=== PATIENT | female | born 1970 | race Two or more races ===

== ENCOUNTER 2019-11-24 07:20 | Emergency (ER) | payer OTHER ==
[2019-11-24 07:33] VITALS: PULSE 78; TEMP 99; BMI 27.3
[2019-11-24] MEDS ORDERED: ACETAMINOPHEN 500 MG TABLET (FP) PO ONE (07:53)
[2019-11-24 08:00] VITALS: BP 127/68
[2019-11-24] MEDS ORDERED: ACETAMINOPHEN 325 MG TABLET (FP) PO ONE ×2 (08:10→08:18)
[2019-11-24] MEDS ORDERED: ACETAMINOPHEN 325 MG TABLET (FP) ONE (08:18)
[2019-11-24 08:33] LABS: HEMATOCRIT 32.9 % (32.4-45.2); HEMOGLOBIN 10.2 GM/dL (10.7-15.3); MCHC 31.1 g/dl (32.0-36.0); MEAN CELL VOLUME 73.9 fl (80-96); MEAN PLT VOLUME 8.7 fl (7.5-11.1); PLATELET COUNT 297 K/MM3 (134-434); RBC 4.45 M/mm3 (3.60-5.2); RDW 15.3 % (11.6-15.6); WHITE BLOOD COUNT 6.2 K/mm3 (4.0-10.0)
--- NOTE | 2019-11-24 08:36 | PDOC ---
History of Present Illness - General Chief Complaint: Weakness Stated Complaint: DIZZINESS Time Seen by Provider: 11/24/19 07:37 - History of Present Illness Initial Comments: 49 yo female with PMH of DM and fibroids presents with weakness and lightheadedness. The weakness/lightheadedness began 2 hours ago once she woke up. She also endorses lower abdominal pain, dysuria, and sob. She denies fevers, chills, n/v/d, hematuria, bloody stools, chest pain. She is sexually active with her only. Pt is serbian speaking and insists translation by her daughter. Past History - Medical History Allergies/Adverse Reactions: Allergies Allergy/AdvReac Type Severity Reaction Status Date / Time diclofenac Allergy Verified 11/24/19 07:26 Home Medications: Ambulatory Orders Multivitamins [Tab-A-Vit -] 1 tab PO DAILY 08/04/14 Docusate Sodium [Colace -] 100 mg PO DAILY PRN #30 capsule 08/05/14 Ferrous Sulfate [Feosol] 325 mg PO TID #90 tablet 08/05/14 metFORMIN HCL [Metformin HCl] 500 mg PO BID 05/25/18 Nitrofurantoin 100 gm MC BID 10 Days #20 powder 11/24/19 Anemia: Yes COPD: No Diabetes: Yes (niddm) Hypercholesterolemia: Yes - Surgical History Abdominal Surgery: Yes (FIBROIDS) - Immunization History Td Vaccination: Yes Immunization Up to Date: Yes - Psycho-Social/Smoking History Smoking Status: No Smoking History: Never smoked Years of Tobacco Use: 0 Have you smoked in the past 12 months: No Number of Cigarettes Smoked Daily: 0 If you are a former smoker, when did you quit?: 2010 Cigars Per Day: 0 'Breaking Loose' booklet given: 01/20/16 - Substance Abuse Hx (Audit-C & DAST Scrn) How often the patient has a drink containing alcohol: Never Score: In Men: 4 or > Positive; In Women: 3 or > Positive: 0 Screen Result (Pos requires Nsg. Audit-10AR): Negative In the last yr the pt used illegal drug/Rx for NonMed reason: No Score: Yes response is considered Positive: 0 Screen Result (Positive result requires Nsg. DAST-10): Negative Review of Systems - Review of Systems Constitutional: No: Chills, Fever HEENTM: No: Recent change in vision, Double Vision Respiratory: Yes: Shortness of Breath. No: Cough Cardiac (ROS): Yes: Lightheadedness, Palpitations. No: Chest Pain ABD/GI: No: Blood Streaked Bowels, Diarrhea, Nausea, Vomiting : Yes: Burning, Dysuria, Pain. No: Flank Pain, Urgency Musculoskeletal: No: Back Pain, Joint Pain Integumentary: No: Dryness, Erythema, Flushing, Lesions Neurological: Yes: Dizziness. No: Headache, Ataxia Psychiatric: No: Anxiety, Depression, Mood Swings Endocrine: No: Intolerance to Cold, Intolerance to Heat *Physical Exam - Vital Signs Last Vital Signs Temp Pulse Resp BP Pulse Ox 99.0 F 78 18 127/68 99 11/24/19 07:26 11/24/19 07:58 11/24/19 07:58 11/24/19 07:58 11/24/19 07:58 - Physical Exam General Appearance: Yes: Appropriately Dressed. No: Apparent Distress HEENT: positive: EOMI, Normal Voice Neck: negative: Tender, Rigid Respiratory/Chest: positive: Lungs Clear, Normal Breath Sounds. negative: Respiratory Distress Cardiovascular: positive: Regular Rhythm, Regular Rate. negative: S1, S2, Edema Female Pelvic Exam: positive: cervical os closed, normal size ovaries, other (lower left adnexal tenderness). negative: discharge, adnexal tenderness Gastrointestinal/Abdominal: positive: Tender (LLQ tenderness), Flat, Soft Musculoskeletal: positive: Normal Inspection. negative: CVA Tenderness Extremity: positive: Normal Capillary Refill, Normal Inspection, Normal Range of Motion Integumentary: positive: Normal Color, Dry, Warm Neurologic: positive: Fully Oriented, Alert, Normal Mood/Affect ED Treatment Course - LABORATORY CBC & Chemistry Diagram: 11/24/19 08:22 11/24/19 08:22 Medical Decision Making - Medical Decision Making 49 yo female presents with dysuria, weakness, and light headedness. Pelvic exam was benign UA identified bacteruria but is contaminated. Negative LE and Nitrates. She will be treated for symptomatic bacteruria with Nitrofurantoin. Pt is stable for discharge Discharge - Discharge Information Problems reviewed: Yes Clinical Impression/Diagnosis: Dizziness, Dysuria Condition: Improved Disposition: HOME - Admission No - Additional Discharge Information Prescriptions: Nitrofurantoin 100 gm MC BID 10 Days #20 powder - Follow up/Referral Referrals: Mary Healy [Primary Care Provider] - Rusty Cota MD [Staff Physician] - - Patient Discharge Instructions Additional Instructions: Take your antibiotics as prescribed. Follow up with your primary care doctor to further monitor your condition within 5 days. Return to the ED if your condition worsens and/or you experience worsening lower abdominal pain, worsening pain with urination, nausea, vomiting, fevers, chills, back pain, light headedness, shortness of breath, chest pain. - Post Discharge Activity
[2019-11-24 08:53] LABS: EPI CELLS 11 /uL (0-25.1); HYALINE CASTS 1 /uL (0-3.1); PH,URINE 5.5 (5.0-8.0); URINE APPEARANCE CLEAR; URINE BACTERIA 99 /uL (0-1359); URINE BILIRUBIN NEGATIVE (NEGATIVE); URINE COLOR YELLOW; URINE GLUCOSE (UA) NEGATIVE (NEGATIVE); URINE KETONE NEGATIVE (NEGATIVE); URINE LEUK ESTERASE NEGATIVE (NEGATIVE); URINE NITRITE NEGATIVE (NEGATIVE); URINE PROTEIN NEGATIVE (NEGATIVE); URINE RBC 4 /uL (0-23.9); URINE UROBILINOGEN 0.2 mg/dL (0.2-1.0); URINE WBC 7 /uL (0-25.8)
--- NOTE | 2019-11-24 09:21 | PDOC ---
Documentation entered by Mansi Beltran SCRIBE, acting as scribe for Adenike Hernandez MD. Adenike Hernandez MD: This documentation has been prepared by the Ruby walters Sydney, SCRIBE, under my direction and personally reviewed by me in its entirety. I confirm that the documentation accurately reflects all work, treatment, procedures, and medical decision making performed by me. Attending Attestation - Resident Resident Name: Jorge Luis Car - ED Attending Attestation I have performed the following: I have examined & evaluated the patient, The case was reviewed & discussed with the resident, I agree w/resident's findings & plan, Exceptions are as noted - HPI HPI: 11/24/19 09:19 Ms. Garrido is a 48 y/o [place] Citizen speaking woman with hx DM, fibroids s/p surgery 2 years ago, anemia previously requiring transfusion secondary to menstrual blood loss p/w lightheadedness this morning. a/w suprapubic pressure no VB. - Physicial Exam PE: 11/24/19 09:19 Agree with the resident's HPI and PE as documented in the electronic medical record. - Medical Decision Making 11/24/19 09:19 Vitals reviewed wnl Vital Signs Temp Pulse Resp BP Pulse Ox 99.0 F 78 18 127/68 99 11/24/19 07:26 11/24/19 07:58 11/24/19 07:58 11/24/19 07:58 11/24/19 07:58 Ddx. anemia, fibroid, infection, mass, arrhythmia, dehydration. Labs and lytes wnl, baseline anemia UA equivocal for infection, treat given she is symptomatic, f/u culture Pelvic exam unremarkable, no discharge or bleeding macrobid for uncomplicated uti no bleeding safe for discharge Pt to be discharged in stable condition. Patient made aware of clinical impression, treatment recommendations and disposition plan, return precautions discussed (including but not limited to new or persistent/worsening symptoms, pain, fevers, or signs of infection, chest pain, respiratory distress, inability to tolerate oral intake, dehydration, syncope, or neurologic changes). Follow up with PMD and/or specialist as recommended, follow up information provided, take medications as instructed for duration of time. continue with supportive care, avoid triggers and precipitants. All questions answered to patient's satisfaction and expressed understanding and comfort with this. At the time of discharge, the patient is alert, clinically improved, tolerating po and verbalizes understanding of instructions, satisfied with the care received and felt comfortable with the plan. Patient does not suffer from an acute life- threatening medical condition at this time and is safe for outpatient follow- up. 11/24/19 09:21 11/24/19 09:58 11/24/19 09:59 Heart Score/ECG Review #1 ECG reviewed & interpreted by me at: 07:55 General ECG Interpretation: Sinus Rhythm, Normal Rate, Normal Intervals 11/24/19 09:20 EKG normal sinus rhythm 70 bpm, no interval abnormalities, narrow QRS, ST and T wave segments and morphology normal. Nonspecific T wave abnormalities Discharge - Discharge Information Problems reviewed: Yes Clinical Impression/Diagnosis: Dizziness, Dysuria Condition: Improved Disposition: HOME - Admission No - Additional Discharge Information Prescriptions: Nitrofurantoin 100 gm MC BID 10 Days #20 powder - Follow up/Referral Referrals: Rusty Cota MD [Staff Physician] - Mary Healy [Primary Care Provider] - - Patient Discharge Instructions Additional Instructions: Take your antibiotics as prescribed. Follow up with your primary care doctor to further monitor your condition within 5 days. Return to the ED if your condition worsens and/or you experience worsening lower abdominal pain, worsening pain with urination, nausea, vomiting, fevers, chills, back pain, light headedness, shortness of breath, chest pain. - Post Discharge Activity
[2019-11-24] MEDS ORDERED: NITROFURANTOIN MACROCRYSTAL 50 MG CAPSULE (FP) PO SCH (09:45)
[2019-11-24 09:46] LABS: ALBUMIN 3.8 g/dl (3.4-5.0); BILIRUBIN,TOTAL 0.4 mg/dL (0.2-1); CREATININE 0.6 mg/dL (0.55-1.3); POTASSIUM 4.4 mmol/L (3.5-5.1); TOT PROT 7.4 g/dl (6.4-8.2)
[2019-11-24] MEDS ORDERED: NITROFURANTOIN MACROCRYSTAL 50 MG CAPSULE (FP) ONE (09:50)
--- NOTE | 2019-11-25 10:46 | EKG ---
Test Reason : Blood Pressure : / mmHG Vent. Rate : 070 BPM Atrial Rate : 070 BPM P-R Int : 190 ms QRS Dur : 082 ms QT Int : 384 ms P-R-T Axes : 056 -05 032 degrees QTc Int : 414 ms NORMAL SINUS RHYTHM NORMAL ECG WHEN COMPARED WITH ECG OF 20-JAN-2016 11:39, NO SIGNIFICANT CHANGE WAS FOUND Confirmed by Gio Rudolph ([id number]) on 11/25/2019 10:45:57 AM Referred By: Confirmed By:Gio Rudolph
== END 2019-11-24 10:30 | disposition home or self-care (01) ==
LOC: JER 07:20
DX: R42 Dizziness and giddiness (principal); R30.0 Dysuria
CPT/HCPCS: 36415; 80053; 81003; 84703; 85027; 87086; 93005; 93010; 99284-25

== ENCOUNTER 2020-05-19 04:14 | Day surgery (SDC) | payer OTHER ==
[2020-05-18 11:27] VITALS: BMI 28.3
[2020-05-19] MEDS ORDERED: MIDAZOLAM HCL 2 MG/2 ML SINGLE DOSE VIAL ONE ×2 (11:52)
[2020-05-19] MEDS ORDERED: SUCCINYLCHOLINE CHLORIDE 200 MG/10 ML SYRINGE ONE (11:53)
[2020-05-19] MEDS ORDERED: PROPOFOL 20 ML ONE ×2 (11:53)
[2020-05-19] MEDS ORDERED: ceFAZolin 2 GRAM PREMIX BAG IVPB ONE (12:10)
[2020-05-19] MEDS ORDERED: ONDANSETRON 4 MG/2 ML VIAL IVPUSH PRN (12:41)
[2020-05-19] MEDS ORDERED: oxyCODONE HCL 5 MG TABLET PO PRN (12:41)
[2020-05-19] MEDS ORDERED: PROMETHAZINE HCL 25 MG/1 ML VIAL IVPB PRN (12:41)
[2020-05-19] MEDS ORDERED: LACTATED RINGERS SOLUTION 1,000 ML IV SCH (12:45)
[2020-05-19 14:03] VITALS: TEMP 98.4
[2020-05-19] MEDS ORDERED: oxyCODONE HCL 5 MG TABLET ONE (14:26)
[2020-05-19 16:42] VITALS: BP 122/70; PULSE 70
== END 2020-05-19 16:30 | disposition home or self-care (01) ==
LOC: JASU-SURG 04:14
PROVIDERS: ATTEND Urology
PROC: 0TND8ZZ Release Urethra, Via Natural or Artificial Opening Endoscopic (ICD-10-PCS; principal; 2020-05-19 10:30)
DX: N35.92 Unspecified urethral stricture, female (principal); R33.8 Other retention of urine; R35.0 Frequency of micturition
CPT/HCPCS: 84703; 87086; 94760

== ENCOUNTER 2021-01-10 01:37 | Emergency (ER) | payer OTHER ==
[2021-01-10 02:11] VITALS: BP 157/93; PULSE 89; TEMP 98.2; BMI 34.2
[2021-01-10] MEDS ORDERED: SODIUM CHLORIDE 0.9% 500 ML INFUS.BAG IV ONE (02:46)
[2021-01-10] MEDS ORDERED: METOCLOPRAMIDE HCL INJECTION 10 MG/2 ML VIAL IVPUSH ONE (02:47)
[2021-01-10] MEDS ORDERED: METOCLOPRAMIDE HCL INJECTION 10 MG/2 ML VIAL ONE (03:00)
[2021-01-10] MEDS ORDERED: DEXAMETHASONE SOD PHOSPHATE 10 MG/1 ML VIAL IVPUSH ONE (04:10)
[2021-01-10] MEDS ORDERED: DEXAMETHASONE SOD PHOSPHATE 10 MG/1 ML VIAL ONE (04:22)
[2021-01-10 05:12] LABS: BASO % 0.5 % (0-2.0); EOS % 1.7 % (0-4.5); HEMATOCRIT 31.2 % (32.4-45.2); HEMOGLOBIN 10.1 GM/dL (10.7-15.3); LYMPH % 36.9 % (8-40); MCH 24.2 pg (25.7-33.7); MCHC 32.3 g/dl (32.0-36.0); MEAN CELL VOLUME 74.9 fl (80-96); MEAN PLT VOLUME 9.6 fl (7.5-11.1); MONO % 7.5 % (3.8-10.2); NEUT % 53.4 % (42.8-82.8); PLATELET COUNT 282 10^3/uL (134-434); RBC 4.16 M/mm3 (3.60-5.2); RDW 17.3 % (11.6-15.6); WHITE BLOOD COUNT 5.7 K/mm3 (4.0-10.0)
[2021-01-10 05:40] LABS: CALCIUM 8.6 mg/dL (8.5-10.1)
[2021-01-10 05:41] LABS: ALBUMIN 3.5 g/dl (3.4-5.0); BLOOD UREA NITROGEN 9.9 mg/dL (7-18)
[2021-01-10 05:44] LABS: CREATININE 0.6 mg/dL (0.55-1.3)
[2021-01-10 05:45] LABS: BILIRUBIN,TOTAL 0.4 mg/dL (0.2-1)
== END 2021-01-10 06:13 | disposition home or self-care (01) ==
LOC: JER 01:37
PROC: 3E033GC Introduction of Other Therapeutic Substance into Peripheral Vein, Percutaneous Approach (ICD-10-PCS; principal; 2021-01-10)
PROC: 3E033GC Introduction of Other Therapeutic Substance into Peripheral Vein, Percutaneous Approach (ICD-10-PCS; 2021-01-10)
PROC: 3E033GC Introduction of Other Therapeutic Substance into Peripheral Vein, Percutaneous Approach (ICD-10-PCS; 2021-01-10)
DX: R51.9 Headache, unspecified (principal)
CPT/HCPCS: 36415; 70450-TC; 80053; 85025; 99284-25; J1100

== ENCOUNTER 2023-06-08 09:59 | Emergency (ER) | payer OTHER ==
[2023-06-08 10:05] VITALS: BMI 29.2
[2023-06-08] MEDS ORDERED: METOCLOPRAMIDE HCL INJECTION 10 MG/2 ML VIAL ONE (11:50)
[2023-06-08] MEDS: SODIUM CHLORIDE 1,000 ML IV ONE (12:25)
[2023-06-08] MEDS: METOCLOPRAMIDE HCL INJECTION 10 MG/2 ML VIAL IVPUSH ONE (12:25)
[2023-06-08 12:44] LABS: BASO % 0.3 % (0-2.0); EOS % 1.5 % (0-4.5); HEMATOCRIT 41.6 % (32.4-45.2); HEMOGLOBIN 14.1 GM/dL (10.7-15.3); LYMPH % 36.7 % (8-40); MCH 29.7 pg (25.7-33.7); MCHC 33.8 g/dl (32.0-36.0); MEAN CELL VOLUME 87.8 fl (80-96); MEAN PLT VOLUME 9.6 fl (7.5-11.1); MONO % 7.1 % (3.8-10.2); NEUT % 54.4 % (42.8-82.8); PLATELET COUNT 202 10^3/uL (134-434); RBC 4.74 M/mm3 (3.60-5.2); RDW 13.3 % (11.6-15.6); WHITE BLOOD COUNT 5.1 K/mm3 (4.0-10.0)
[2023-06-08 13:01] LABS: POTASSIUM 4.8 mmol/L (3.5-5.1)
[2023-06-08 13:04] LABS: ALBUMIN 3.6 g/dl (3.4-5.0); BLOOD UREA NITROGEN 7.4 mg/dL (7-18)
[2023-06-08 13:06] LABS: CREATININE 0.5 mg/dL (0.55-1.3)
[2023-06-08 13:08] LABS: BILIRUBIN,TOTAL 0.6 mg/dL (0.2-1); TOT PROT 7.2 g/dl (6.4-8.2)
[2023-06-08 14:33] VITALS: BP 144/78; PULSE 78; RESP 19; TEMP 97.9
== END 2023-06-08 14:40 | disposition home or self-care (01) ==
LOC: JER 09:59
PROC: 3E033GC Introduction of Other Therapeutic Substance into Peripheral Vein, Percutaneous Approach (ICD-10-PCS; principal; 2023-06-08)
PROC: 3E0337Z Introduction of Electrolytic and Water Balance Substance into Peripheral Vein, Percutaneous Approach (ICD-10-PCS; 2023-06-08)
DX: G44.209 Tension-type headache, unspecified, not intractable (principal); R11.0 Nausea; Z20.822 Contact with and (suspected) exposure to COVID-19
CPT/HCPCS: 0241U-QW; 36415; 80053; 84484; 85025; 99284-25